=== PATIENT | male | born 1965 | race Caucasian/White ===

== ENCOUNTER 2019-03-26 08:07 | Inpatient (IN) | payer OTHER, SELFPAY ==
[2019-03-26] VITALS (11 sets, daily range): BP systolic 148–174; BP diastolic 88–110; PULSE 63–88; RESP 14–18; TEMP 36.9–37.3; O2SAT 93–97; BMI 27.3; BMI 28.0
--- NOTE | 2019-03-26 08:08 | ED.ANIMALBIT ---
HPI - Animal Bite General Stated Complaint: right side couldn't move this morning Time Seen by Provider: 03/26/19 08:08
--- NOTE | 2019-03-26 08:09 | ED_ITS ---
HPI - Neuro Symptoms/Deficit General Chief Complaint: Neuro Symptoms/Deficit Stated Complaint: right side couldn't move this morning Time Seen by Provider: 03/26/19 08:08 Source: patient and family (son) Mode of arrival: Ambulatory Limitations: no limitations History of Present Illness HPI Narrative: This is a 53-year-old male comes to the Emergency episode with complaint of right-sided paralysis and difficulty with speech on all lasting for about 10 minutes. Patient states that it occurred about 3 times. The 1st episode was in the evening yesterday, there was 1 overnight and then 1 this morning at about 5:00 a.m.. Patient states that during this episode he could not move his right side at all. Patient states that he did not note if he had any vision changes. He has a mild headache. He denies any chest pain or shortness of breath. He felt slightly nauseated earlier. No vomiting. No changes with bowel movements, no loss of bladder control. Patient states his symptoms have totally resolved. States he has a history of hypertension, he does not take medication for it. He is not aware of any other medical problems. He does smoke tobacco, and drinks ?too much alcohol? he denies any illicit. Patient states there is a family history particularly with his mother of strokes, cardiac issues for several family members. He is not aware of anyone having symptoms and age of 60. Related Data Home Medications Medication Instructions Recorded Confirmed lisinopril 20 mg PO DAILY 03/26/19 03/26/19 Allergies Allergy/AdvReac Type Severity Reaction Status Date / Time No Known Drug Allergies Allergy Verified 03/26/19 08:19 Review of Systems Review of Systems ROS Unobtainable: All systems reviewed & are unremarkable except as noted in HPI and below Constitutional Constitutional: Denies chills, Denies fever(s), Denies lethargy and Reports weakness (right arm and leg.) Eyes Eyes: Denies change in vision Cardiovascular Cardiovascular: Denies chest pain, Denies syncope, Denies irregular heart rhythm, Denies lightheadedness, Denies palpitations and Denies dyspnea Respiratory Respiratory: Denies chest congestion, Denies cough and Denies dyspnea Gastrointestinal Gastrointestinal: Denies abdominal pain, Denies change in bowel habits, Denies diarrhea, Reports nausea (resolved.) and Denies vomiting Genitourinary Genitourinary: Denies hematuria, Denies flank pain, Denies urinary frequency, Denies urinary hesitancy, Denies urinary incontinence and Denies urinary urgency Musculoskeletal Musculoskeletal: Reports as per HPI, Reports muscle weakness and Denies numbness Integumentary/Breasts Skin/Breast: Denies erythema and Denies rash Neurologic Neurologic: Reports as per HPI, Reports abnormal speech, Denies syncope, Reports focal weakness, Denies numbness, Denies sensory deficit and Reports weakness (right arm and leg.) Endocrine Endocrine: Denies palpitations Patient History Medical History (Updated 03/26/19 @ 10:16 by Huong Thurman DO) Hypertension (Acute) Family History Mother CVA (cerebral vascular accident) Social History household members: none Smoking Status: Current every day smoker alcohol intake: current tobacco type: cigarettes Alcohol type: beer Substance Use Type: does not use Exam Narrative Exam Narrative: GEN: well nourished, well appearing male, alert and oriented x 3, patient appears to be in no acute distress. HEENT: Atraumatic, pupils are equal round reactive to light, extraocular movements are intact, nares are clear, TMs are clear with no fluid, there is no conjunctival pallor. Throat is clear without any exudates, erythema, tonsillar enlargement or uvular deviation, no facial droop. HEART: Regular rate and rhythm without murmur, clicks, rubs. LUNGS:Lungs clear to auscultation, no wheezes, rales, crackles, chest moves symmetrically ABD:bowel sounds normal, soft, non-tender, no guarding, rebound, rigidity, no masses noted, no hepatosplenomegaly MSCL: Non-tender, no muscle atrophy, muscles strength 5/5 upper and lower extremities, full range of motion, normal gait NEURO:CN 2-12 intact, sensation normal, reflexes 2/4 upper and lower extremities. finger nose finger test normal, heel daniel test normal, no dysarthria. SKIN: no rashes noted. Initial Vital Signs Initial Vital Signs: Vital Signs Temperature 98.7 F 03/26/19 08:12 Pulse Rate 81 03/26/19 08:12 Respiratory Rate 18 03/26/19 08:12 Blood Pressure 171/103 H 03/26/19 08:12 Pulse Oximetry 96 03/26/19 08:12 Scores NIH Stroke Scale Level of Conciousness: Alert, keenly responsive Ask month/age: Answers both questions correctly. Open/close eyes, close hand: Performs both tasks correctly Best gaze horizontal: Normal Visual [place]udson: No visual loss Facial palsy: Normal symetrical movement Left arm drift: No drift for full 10 sec Right arm drift: No drift for full 10 sec Left leg drift: No drift for full 10 sec Right leg drift: No drift for full 10 sec Limb ataxia: Absent Sensory on face/arms/legs: Normal, no sensory loss Best language: No aphasia, normal Dysarthria: Normal Extinction or inattention: No abnormality Total NIH Stroke scale score: 0 Course Orders Ordered: ED Orders 03/26/19 08:54 Complete Blood Count AUTO DIFF Stat Comprehensive Metabolic Panel Stat Ethanol (ETOH) Stat Partial Thromboplastin Time Stat Prothrombin Time INR Stat Troponin I Stat 03/26/19 09:40 CT angio head and neck Stat 03/26/19 10:30 Urine Drug Screen, Rapid Stat Acetaminophen (Tylenol) 650 mg PO Q6HR PRN PRN Reason: As Needed for Fever/Mild Pain Atorvastatin Calcium (Lipitor) 40 mg PO BEDTIME [facility] Clopidogrel Bisulfate (Plavix) 75 mg PO DAILY [facility] Enoxaparin Sodium (Lovenox) 40 mg SUBCUT DAILY [facility] Lisinopril (Zestril) 20 mg PO DAILY [facility] Last Admin: 03/26/19 12:08 Dose: 20 mg Documented by: NAMRATA Discontinued Medications Aspirin (Aspirin Chew) 324 mg PO NOW ONE Stop: 03/26/19 10:12 Last Admin: 03/26/19 10:26 Dose: 324 mg Documented by: ELBA Clopidogrel Bisulfate (Plavix) 300 mg PO NOW ONE Stop: 03/26/19 11:26 Last Admin: 03/26/19 12:08 Dose: 300 mg Documented by: NAMRATA Sodium Chloride (Normal Saline 0.9%) 1,000 mls @ 150 mls/hr IV CONT [facility] Last Admin: 03/26/19 09:18 Dose: 150 mls/hr Documented by: ELBA Influenza Virus Vaccine (Flu Vaccine) 0.5 ml IM .ONCE ONE Stop: 03/26/19 11:44 Nicotine (Nicoderm) 21 mg TOP NOW ONE Stop: 03/26/19 10:36 Last Admin: 03/26/19 12:08 Dose: 21 mg Documented by: ACHESS Vital Signs Vital signs: Vital Signs - 8 hr 03/26/19 10:02 Pulse Rate 71 Respiratory Rate 14 Blood Pressure [Right Arm] 168/106 H Pulse Oximetry 97 MDM - Neuro Symptoms/Deficit Lab Data Attestation: I reviewed the patient's lab results. Result diagrams: 03/26/19 08:54 03/26/19 08:54 Labs: Lab Results 03/26/19 03/26/19 03/26/19 Range/Units 08:54 08:54 08:54 WBC 8.6 (4.5-11.0) X10^3/uL RBC 5.13 (4.5-5.9) X10^6/uL Hgb 16.3 (13.5-17.5) g/dL Hct 46.7 (41-53) % MCV 91.0 (80-100) fL MCH 31.8 (26-34) PG MCHC 34.9 (30-36) % RDW 13.2 (11.6-14.8) % Plt Count 289 (150-400) X10^3/uL Neut % (Auto) 65.5 (50-75) % Lymph % (Auto) 22.5 L (25-40) % [place] % (Auto) 10.2 (3-14) % Eos % (Auto) 1.2 L (2-4) % Baso % (Auto) 0.6 (0-2) % Neut # (Auto) 5600 (1525-6300) /uL Lymph # (Auto) 1900 (5156-7441) /uL [place] # (Auto) 900 (0-900) /uL Eos # (Auto) 100 (0-450) /uL Baso # (Auto) 100 (0-100) /uL PT 10.5 (10.1-12.7) SECONDS INR 0.9 (0.9-1.3) APTT 34 (26.4-36.2) SECONDS Sodium 136 L (137-145) mmol/L Potassium 4.4 (3.4-5.1) mmol/L Chloride 104 (98-107) mmol/L Carbon Dioxide 20 L (22-32) mmol/L BUN 10 (9-20) mg/dL Creatinine 0.70 (0.66-1.25) mg/dL Estimated GFR > 60.0 (>60) mL/min BUN/Creatinine Ratio 14.3 (6-22) Glucose 108 H (70-100) mg/dL Calcium 8.9 (8.4-10.2) mg/dL Total Bilirubin 0.4 (0.2-1.3) mg/dL AST 32 (17-59) IU/L ALT 27 (<50) IU/L Alkaline Phosphatase 48 (38-126) U/L Troponin I < 0.012 (0.01-0.034) ng/mL Total Protein 7.6 (6.3-8.2) g/dL Albumin 4.5 (3.5-5.0) g/dL Globulin 3.1 (1.7-4.1) g/dL Albumin/Globulin Ratio 1.5 (1.0-2.8) Ethyl Alcohol 28 H ( - 10) mg/dL Point of Care Testing Glucose POC [address] scan - head: Radiologist's impression: [address] [address] [address] Scan Report Signed Patient: Edilson Castelan Jr LMR#: [id number] : 1965Acct:[id number] Age/Sex: 53 / MDate of Service: 03/26/19 Loc: ED Accession Number: [id number] Procedure: CT head/brain wo con Ordering Provider: Huong Thurman D.O. PROCEDURE: CT HEAD/BRAIN WO CON INDICATIONS: TIa symptoms, right side paralyzed, speech issues TECHNIQUE: Noncontrast 4.5 mm thick angled axial sections acquired from the foramen magnum to the vertex, with coronal and sagittal reformats. For radiation dose reduction, the following was used: automated exposure control, adjustment of mA and/or kV according to patient size. COMPARISON: None. FINDINGS: Image quality: Excellent. CSF spaces: Basal cisterns are patent. No extra-axial fluid collections. The ventricles are symmetric in size and shape. Brain: No intracranial bleeds or masses. There is cerebral volume loss for age, with resultant ventricular and sulcal prominence. There are periventricular and deep white matter chronic small vessel ischemic changes. A hypodensity noted in the right putamen which could represent prominent Versus chronic lacunar infarct. There is intracranial internal carotid artery atherosclerosis. Skull and face: Calvarium and visualized facial bones appear intact, without suspicious lesions. Sinuses: Mucosal thickening and air-fluid levels noted the visualized maxillary sinuses. Air-fluid level noted in the sphenoid sinus. The mastoids are clear. IMPRESSION: 1. No acute intracranial disease process. 2. No intracranial hemorrhage. 3. Acute superimposed upon chronic bilateral maxillary sinusitis and acute sphenoid sinusitis. Dictated by: Yumiko Marti MD, PhD on 03/26/2019 at 8:37 Approved by: Yumiko Marti MD, PhD on 03/26/2019 at 8:40 Head/Neck CTA: Radiologist's impression: [place] [address] CT Scan Report Signed Patient: Edilson Castelan Jr LMR#: [id number] : 1965Acct:[id number] Age/Sex: 53 / MDate of Service: 03/26/19 Loc: ED Accession Number: [id number] Procedure: CT angio head and neck Ordering Provider: Huong Thurman D.O. PROCEDURE: CT ANGIO HEAD AND NECK INDICATIONS: TIA symptoms, right side paralyzed, speech issues TECHNIQUE: Pre-contrast 4.5 mm thick sections acquired from the foramen magnum to the vertex. After the administration of intravenous contrast, 1 mm thick sections acquired from the aortic arch through the [place] of [place]. Post-contrast 4.5 mm thick sections then re- acquired from the foramen magnum to the vertex. 3-dimensional fveydok-iqyjrudkp-xfclphfunu (MIP) and/or volume rendering reformats were acquired of the central intracranial vasculature and neck separately. COMPARISON: [facility], CT, CT HEAD/BRAIN WO CON, 03/26/2019, 8:22. FINDINGS: Image quality: Excellent. BRAIN: CSF spaces: Ventricles are normal in size and shape. Basal cisterns are patent. No extra-axial fluid collections. Brain: No midline shift. No intracranial bleeds or masses. Ramirez-white matter interface appears intact. Age related volume loss and mild small vessel ischemic change. Dilated perivascular space on the right in the putamen. No evidence acute stroke. Skull and face: Calvarium and facial bones appear intact, without suspicious lesions. Orbits appear normal. Sinuses: Left maxillary sinus air-fluid level. Right maxillary sinus mucosal thickening and reduced retention cyst. HEAD CT ANGIOGRAPHY: Anterior circulation: Intracranial internal carotid arteries are normal in size and flow. The flow within the paired anterior cerebral arteries is normal and symmetric. The flow within the middle cerebral arteries is normal and symmetric. No aneurysms are seen. Posterior circulation: Visualized portions of the vertebral arteries demonstrate normal caliber, and join to form a normal appearing basilar artery. Flow within the posterior cerebral arteries is normal and symmetric. No aneurysms are seen. NECK CT ANGIOGRAPHY: Carotid system: The great vessels demonstrate a conventional anatomy as they arise from the aortic arch. The origins of the common carotid arteries appear patent. The common carotid arteries demonstrate normal caliber and courses. The bifurcation regions are both widely patent. The internal carotid arteries demonstrate mild atheros clerotic plaque with minimal stenosis. No flow limiting stenosis. Posterior circulation: The origins of the vertebral arteries both appear widely patent. The more superior extracranial portions of both vertebral arteries also demonstrate normal courses and calibers. They join to form a normal appearing basilar artery. Soft tissues: Visualized neck soft tissues demonstrate no suspicious abnormalities. Shotty bilateral cervical adenopathy. Bones: No suspicious bony lesions. Visualized cervical spine appears normally aligned. IMPRESSION: 1. Age related volume loss and mild small vessel ischemic change. 2. No evidence acute stroke, hemorrhage, or mass. 3. Unremarkable CTA head 4. Mild bilateral internal carotid atherosclerotic plaque. No flow limiting stenosis. 5. Acute on chronic sinus disease. Comment: Findings were discussed with Dr. Thurman at the time of study dictation on 03/26/19 at 0958 hrs. Any quantitative measurements of stenosis were performed using NASCET criteria. Dictated by: Edenilson Coyle M.D. on 03/26/2019 at 9:50 Approved by: Edenilson Coyle M.D. on 03/26/2019 at 10:00 ECG Data Attestation: I personally reviewed and interpreted this ECG as follows: Prior ECG tracings: not available for review Interpretation: sinus rhythm, rate of 79 ND 178 QRS of 90 during QTC of 415. Likely left ventricular hypertrophy. No prior for comparison. MDM Narrative Medical decision making narrative: Patient's initial glucose was 100. Patient describes TIA like symptoms x 3 in the last 12 hours. With patient's repeated episodes his symptoms are highly concerning for a acute stroke developing. Initial Head CT is negative. CTA shows mild bilateral ICA atherosclerosis. Some left shows sodium 136 CO2 of 20 with a glucose of 108. Alcohol is 28. UDS is ordered but has not been collected. ASA 324 mg given in ED. Spoke with Dr. Schroeder who accepts for observation for TIA. Discharge Plan Departure Patient Disposition: Admitted as Observation Clinical Impression: Transient cerebral ischemia, Hypertension Discharge Date/Time: 03/26/19 10:53 Instructions: DI for Transient Ischemic Attack, How to Prevent Falls Admit Date/Time: 03/26/19 10:15 Admit Provider: Maksim Schroeder
--- NOTE | 2019-03-26 08:25 | DI.CT.S_ITS ---
PROCEDURE: CT HEAD/BRAIN WO CON INDICATIONS: TIa symptoms, right side paralyzed, speech issues TECHNIQUE: Noncontrast 4.5 mm thick angled axial sections acquired from the foramen magnum to the vertex, with coronal and sagittal reformats. For radiation dose reduction, the following was used: automated exposure control, adjustment of mA and/or kV according to patient size. COMPARISON: None. FINDINGS: Image quality: Excellent. CSF spaces: Basal cisterns are patent. No extra-axial fluid collections. The ventricles are symmetric in size and shape. Brain: No intracranial bleeds or masses. There is cerebral volume loss for age, with resultant ventricular and sulcal prominence. There are periventricular and deep white matter chronic small vessel ischemic changes. A hypodensity noted in the right putamen which could represent prominent Versus chronic lacunar infarct. There is intracranial internal carotid artery atherosclerosis. Skull and face: Calvarium and visualized facial bones appear intact, without suspicious lesions. Sinuses: Mucosal thickening and air-fluid levels noted the visualized maxillary sinuses. Air-fluid level noted in the sphenoid sinus. The mastoids are clear. IMPRESSION: 1. No acute intracranial disease process. 2. No intracranial hemorrhage. 3. Acute superimposed upon chronic bilateral maxillary sinusitis and acute sphenoid sinusitis. Dictated by: Yumiko Marti MD, PhD on 03/26/2019 at 8:37 Approved by: Yumiko Marti MD, PhD on 03/26/2019 at 8:40
--- NOTE | 2019-03-26 08:25 | PC.NURSE ---
pt reports, watching tv last night, went to bed at 9pm, woke up at 10pm , trying to go to the bathroom, unable to move right arm and legs, lasting 10 minutes, back to bed, woke up at 3am with same sxs, and again at 5am, +speech slurred,right face numbness,right arm and leg unable to move. denies injuries,trauma. hx of hypertension, pack of cigarette smoker, not taking meds due to I'm lazy
[2019-03-26 09:05] LABS: Add Manual Diff / Slide Review NO; Basophils Absolute Auto 100 /uL (0-100); Basophils Percent Auto 0.6 % (0-2); Eosinophils Absolute Auto 100 /uL (0-450); Eosinophils Percent Auto 1.2 % (2-4); Hematocrit 46.7 % (41-53); Hemoglobin 16.3 g/dL (13.5-17.5); Lymphocytes Absolute Auto 1900 /uL (1100-4500); Lymphocytes Percent Auto 22.5 % (25-40); Mean Corpuscular HGB Conc 34.9 % (30-36); Mean Corpuscular Hemoglobin 31.8 PG (26-34); Monocytes Absolute Auto 900 /uL (0-900); Monocytes Percent Auto 10.2 % (3-14); Neutrophils Absolute Auto 5600 /uL (1500-7000); Neutrophils Percent Auto 65.5 % (50-75); Platelet Count 289 X10^3/uL (150-400); Red Blood Cell Count 5.13 X10^6/uL (4.5-5.9); Red Cell Distribution Width 13.2 % (11.6-14.8); White Blood Cell Count 8.6 X10^3/uL (4.5-11.0)
[2019-03-26 09:10] LABS: INR 0.9 (0.9-1.3); Prothrombin Time 10.5 SECONDS (10.1-12.7)
[2019-03-26 09:13] LABS: PTT Partial Thromboplastin Tim 34 SECONDS (26.4-36.2)
[2019-03-26 09:14] LABS: Alanine Aminotransferase 27 IU/L (<50); Albumin 4.5 g/dL (3.5-5.0); Albumin Globulin Ratio 1.5 (1.0-2.8); Alkaline Phosphatase 48 U/L (38-126); Aspartate Aminotransferase 32 IU/L (17-59); BUN Creatinine Ratio 14.3 (6-22); Bilirubin Total 0.4 mg/dL (0.2-1.3); Blood Urea Nitrogen 10 mg/dL (9-20); Calcium 8.9 mg/dL (8.4-10.2); Carbon Dioxide 20 mmol/L (22-32); Chloride 104 mmol/L (98-107); Estimated Glomerular Filt Rate > 60.0 mL/min (>60); Ethanol (ETOH) 28 mg/dL; Globulin 3.1 g/dL (1.7-4.1); Glucose 108 mg/dL (70-100); HEMOLYSIS < 15 (0-50); Potassium 4.4 mmol/L (3.4-5.1); Sodium 136 mmol/L (137-145); Total Protein 7.6 g/dL (6.3-8.2)
[2019-03-26] MEDS: SODIUM CHLORIDE 0.9% 1,000 ML 150 ML IV (09:18)
[2019-03-26 09:26] LABS: Troponin I < 0.012 ng/mL (0.01-0.034)
--- NOTE | 2019-03-26 09:40 | DI.CT.S_ITS ---
PROCEDURE: CT ANGIO HEAD AND NECK INDICATIONS: TIA symptoms, right side paralyzed, speech issues TECHNIQUE: Pre-contrast 4.5 mm thick sections acquired from the foramen magnum to the vertex. After the administration of intravenous contrast, 1 mm thick sections acquired from the aortic arch through the [place] of [place]. Post-contrast 4.5 mm thick sections then re-acquired from the foramen magnum to the vertex. 3-dimensional ipspnht-tgtrtfacb-fvucrrepet (MIP) and/or volume rendering reformats were acquired of the central intracranial vasculature and neck separately. COMPARISON: [facility], CT, CT HEAD/BRAIN WO CON, 03/26/2019, 8:22. FINDINGS: Image quality: Excellent. BRAIN: CSF spaces: Ventricles are normal in size and shape. Basal cisterns are patent. No extra-axial fluid collections. Brain: No midline shift. No intracranial bleeds or masses. Ramirez-white matter interface appears intact. Age related volume loss and mild small vessel ischemic change. Dilated perivascular space on the right in the putamen. No evidence acute stroke. Skull and face: Calvarium and facial bones appear intact, without suspicious lesions. Orbits appear normal. Sinuses: Left maxillary sinus air-fluid level. Right maxillary sinus mucosal thickening and reduced retention cyst. HEAD CT ANGIOGRAPHY: Anterior circulation: Intracranial internal carotid arteries are normal in size and flow. The flow within the paired anterior cerebral arteries is normal and symmetric. The flow within the middle cerebral arteries is normal and symmetric. No aneurysms are seen. Posterior circulation: Visualized portions of the vertebral arteries demonstrate normal caliber, and join to form a normal appearing basilar artery. Flow within the posterior cerebral arteries is normal and symmetric. No aneurysms are seen. NECK CT ANGIOGRAPHY: Carotid system: The great vessels demonstrate a conventional anatomy as they arise from the aortic arch. The origins of the common carotid arteries appear patent. The common carotid arteries demonstrate normal caliber and courses. The bifurcation regions are both widely patent. The internal carotid arteries demonstrate mild atherosclerotic plaque with minimal stenosis. No flow limiting stenosis. Posterior circulation: The origins of the vertebral arteries both appear widely patent. The more superior extracranial portions of both vertebral arteries also demonstrate normal courses and calibers. They join to form a normal appearing basilar artery. Soft tissues: Visualized neck soft tissues demonstrate no suspicious abnormalities. Shotty bilateral cervical adenopathy. Bones: No suspicious bony lesions. Visualized cervical spine appears normally aligned. IMPRESSION: 1. Age related volume loss and mild small vessel ischemic change. 2. No evidence acute stroke, hemorrhage, or mass. 3. Unremarkable CTA head 4. Mild bilateral internal carotid atherosclerotic plaque. No flow limiting stenosis. 5. Acute on chronic sinus disease. Comment: Findings were discussed with Dr. Thurman at the time of study dictation on 03/26/19 at 0958 hrs. Any quantitative measurements of stenosis were performed using NASCET criteria. Dictated by: Edenilson Coyle M.D. on 03/26/2019 at 9:50 Approved by: Edenilson Coyle M.D. on 03/26/2019 at 10:00
[2019-03-26] MEDS: ASPIRIN 81 MG CHEW TAB 324 MG PO (10:26)
[2019-03-26 10:46] LABS: Ur Creatinine Normal (Normal); Ur Specific Gravity Normal (Normal); Urine pH Normal (Normal)
[2019-03-26 10:47] LABS: UR Morphine/Opiate cutoff 300 Negative (Negative); Urine Amphetamines Negative (Negative); Urine Barbiturates Negative (Negative); Urine Benzodiazepines Negative (Negative); Urine Cocaine Negative (Negative); Urine MDMA Negative (Negative); Urine Methadone Negative (Negative); Urine Methamphetamines Negative (Negative); Urine Oxycodone Negative (Negative); Urine Phencyclidine Negative (Negative); Urine Tetrahydrocannabinol Negative (Negative); Urine Tricyclic Antidepressant Negative (Negative)
--- NOTE | 2019-03-26 11:19 | DI.MRI.S_ITS ---
PROCEDURE: MR STROKE Pre- and post-contrast brain MRI, non-contrast brain MR angiogram, pre- and postcontrast neck MR angiogram INDICATIONS: TIA, R weakness and slurred speech now resolved TECHNIQUE: Brain: Noncontrast axial T1 spin echo, axial T2 fast spin echo, sagittal and axial FLAIR, coronal T2 fast spin echo, axial gradient echo, axial diffusion and ADC through the brain. After the administration of contrast, axial 3D VIBE of the cranial vasculature and brain. Brain MRA: Non-contrast 3-D time of flight MR angiogram, with multiple rmvfmsv-qgyznxurr-uvglhcnfrw (MIP) reformats performed. Neck MRA: Axial and sagittal TruFISP through the neck. Coronal dynamic MR angiogram during administration of contrast in the arterial and venous phases, with 3-dimenstional liwqbid-bxkjzhpek-nvblbbrzzq (MIP) reformats constructed from subtraction images. COMPARISON: [facility], CT, CT ANGIO HEAD AND NECK, 03/26/2019, 9:30. FINDINGS: Image quality: Excellent. BRAIN: CSF spaces: Ventricles are normal in size and shape. Basal cisterns are patent. No extra-axial fluid collections. Brain: No intracranial bleeds or mass effects. There is mild, diffuse cerebral volume loss. There are mild periventricular and subcortical white matter chronic microvascular ischemic changes. Prominent perivascular space noted in the right putamen. Ramirez-white matter interface is normal. Small acute lacunar infarct noted in the posterior left caudate body/bailey radiata. Brainstem appears normal. Normal intravascular flow voids are present. No abnormal intracranial enhancement. Skull and face: Calvarial marrow signal is normal. Orbits appear normal. Sinuses: Mucosal thickening noted in the maxillary sinuses and in the left frontal sinus. Large mucous retention cyst versus polyp noted in the right maxillary sinus. Air fluid level noted in the left maxillary sinus and the sphenoid sinuses. The mastoids are clear. BRAIN MR ANGIOGRAM: Anterior circulation: Intracranial internal carotid arteries are normal in size and enhancement. The flow within the paired anterior cerebral arteries is normal and symmetric. The flow within the middle cerebral arteries is normal and symmetric. The anterior communicating artery is seen. No stenoses, occlusions, or aneurysms. Posterior circulation: The visualized portions of the vertebral arteries demonstrate normal caliber, and join to form a normal appearing basilar artery. The flow within the posterior cerebral arteries is normal and symmetric. No stenoses, occlusions, or aneurysms. NECK MR ANGIOGRAM: Carotids: Great vessels demonstrate a conventional anatomy as they arise from the aortic arch. The origins of the common carotid arteries appear patent. The calibers and courses of both common carotid arteries are normal. The bifurcation regions appear normal bilaterally. The internal carotid arteries demonstrate normal course and caliber. Posterior circulation: The origins of the vertebral arteries appear patent. More superior portions of both vertebral arteries demonstrate normal course and caliber, and join to form a normal appearing basilar artery. Miscellaneous: Subclavian arteries appear patent. Pre-contrast images through the neck show no soft tissue abnormalities. IMPRESSION: BRAIN MRI: 1. Small, acute lacunar infarct involving the posterior left caudate body/left bailey radiata. 2. No acute or chronic intracranial hemorrhage. 3. Mild, diffuse cerebral white loss. 4. Mild periventricular and subcortical white matter chronic microvascular ischemic changes. 6. Sinusitis stable compared to prior CT scan of the head obtained on a slice 10/2018 BRAIN MR ANGIOGRAM: Negative examination. NECK MR ANGIOGRAM: Negative examination. Dictated by: Yumiko Marti MD, PhD on 03/26/2019 at 16:04 Approved by: Yumiko Marti MD, PhD on 03/26/2019 at 16:15
--- NOTE | 2019-03-26 11:24 | P.HP_ITS ---
History of Present Illness History of Present Illness Date Patient Seen: 03/26/19 Time Patient Seen: 11:26 Chief complaint: right side couldn't move this morning Narrative: Edilson Castelan Jr is a 53 year old male with PMH of HTN (has not been taking his medications, and has not seen his PMD in a while) who presented to the ED after waking up with right-sided paralysis and slurred speech. Patient states last night around 10:00 p.m. he had an episode lasting 5-10 minutes of right-sided paralysis and slurred speech. He further endorses some numbness on the right side that again resolved. He was aware of his surroundings and was in bed and did not fall. This resolved after approximately 5-10 minutes. The patient then went to bed and woke up around 3:00 a.m. with similar symptoms which again resolved. He then woke up early this morning with another episode that again lasted approximately 5-10 minutes. He then presented to the emergency room for further evaluation. He denies any recent fevers, chills, chest pain, palpitations, shortness of breath, dyspnea on exertion, orthopnea, lower extremity edema, nausea, vomiting. He states he drinks a 6 pack at night, every night. He smokes about a pack-a-day and has for many years. He denies illicit substances or marijuana use. In the ED, the patient's vitals were notable for hypertension, but otherwise unremarkable. His stroke scale was 0 in the emergency room. His initial lab evaluation was unremarkable. His head CT was unremarkable, as was a CTA head and neck which did not show significant carotid stenosis. He will be admitted under observation status for TIA. Patient History Medical History (Updated 03/26/19 @ 10:16 by Huong Thurman DO) Hypertension (Acute) Family & Social History Family History Mother CVA (cerebral vascular accident) Safety & Behavioral: Feels Safe in Current Yes Environment Been Physically Hurt or No Threatened By a Person Tobacco & Substance use: Smoking Status Current every day smoker alcohol intake frequency 3 or more drinks per day Substance Use Type does not use Meds Home Medications and Allergies Home Medications Medication Instructions Recorded Confirmed Type lisinopril 20 mg PO DAILY 03/26/19 03/26/19 History Allergies Allergy/AdvReac Type Severity Reaction Status Date / Time No Known Drug Allergies Allergy Verified 03/26/19 08:19 Review of Systems Review of Systems Narrative: All other systems reviewed with the patient and are negative unless otherwise stated. Exam Vital Signs (past 8 hours): - 03/26/19 08:12 03/26/19 08:15 03/26/19 08:36 Temperature 98.7 F Pulse Rate 81 88 79 Respiratory Rate 18 15 16 Blood Pressure 171/103 H Blood Pressure [Right Arm] 171/103 H 173/101 H Pulse Oximetry 96 03/26/19 09:02 03/26/19 09:21 03/26/19 09:30 Temperature Pulse Rate 74 76 77 Respiratory Rate 16 17 18 Blood Pressure Blood Pressure [Right Arm] 174/100 H 174/100 H 169/98 H Pulse Oximetry 94 96 03/26/19 10:02 03/26/19 11:16 Temperature Pulse Rate 71 Respiratory Rate 14 Blood Pressure Blood Pressure [Right Arm] 168/106 H Pulse Oximetry 97 93 Oxygen Delivery Method Room Air Oxygen Flow Rate 0 Narrative Exam Narrative: GENERAL APPEARANCE: Well developed, well nourished, in no acute distress. SKIN: Inspection of the skin reveals no rashes, ulcerations or petechiae. HEENT: The sclerae were anicteric and conjunctivae were pink and moist. Extraocular movements were intact and pupils were equal, round with normal ac commodation. External inspection of the ears and nose showed no scars, lesions, or masses. Lips, teeth, and gums showed normal mucosa. The oral mucosa, hard and soft palate, tongue and posterior pharynx were unremarkable. NECK: Supple and symmetric. There was no thyroid enlargement, and no tenderness, or masses were felt. CHEST: Normal AP diameter and normal contour without any kyphoscoliosis. LUNGS: Auscultation of the lungs revealed no wheezes, rhonchi, or rales. CARDIOVASCULAR: There was a regular rate and rhythm without any murmurs, gallops, rubs. Peripheral pulses were 2+ and symmetric. ABDOMEN: Soft and nontender with normal bowel sounds. No ascites was noted. MUSCULOSKELETAL: There was no tenderness or effusions noted. Muscle strength and tone were normal. EXTREMITIES: No cyanosis, clubbing or edema. NEUROLOGIC: Alert and oriented x 3. Normal affect. Gait was normal. Strength is +5/5 in the Upper Extremities and Lower Extremities Bilaterally. Sensation to touch was normal bilaterally. Objective ECG Impression: Normal sinus rhythm, LVH. No ST segment elevations or T-wave inver sions to suggest ischemia. Imaging CT scan - head: Radiologist's impression: 1. No acute intracranial disease process. 2. No intracranial hemorrhage. 3. Acute superimposed upon chronic bilateral maxillary sinusitis and acute sphenoid sinusitis. Head/Neck CTA: Radiologist's impression: 1. Age related volume loss and mild small vessel ischemic change. 2. No evidence acute stroke, hemorrhage, or mass. 3. Unremarkable CTA head 4. Mild bilateral internal carotid atherosclerotic plaque. No flow limiting stenosis. 5. Acute on chronic sinus disease. Labs Result Diagrams: 03/26/19 08:54 03/26/19 08:54 Labs: Laboratory Results - last 24 hr 03/26/19 03/26/19 03/26/19 08:54 08:54 08:54 WBC 8.6 RBC 5.13 Hgb 16.3 Hct 46.7 MCV 91.0 MCH 31.8 MCHC 34.9 RDW 13.2 Plt Count 289 Neut % (Auto) 65.5 Lymph % (Auto) 22.5 L [place] % (Auto) 10.2 Eos % (Auto) 1.2 L Baso % (Auto) 0.6 Neut # (Auto) 5600 Lymph # (Auto) 1900 [place] # (Auto) 900 Eos # (Auto) 100 Baso # (Auto) 100 PT 10.5 INR 0.9 APTT 34 Sodium 136 L Potassium 4.4 Chloride 104 Carbon Dioxide 20 L BUN 10 Creatinine 0.70 Estimated GFR > 60.0 BUN/Creatinine Ratio 14.3 Glucose 108 H Calcium 8.9 Total Bilirubin 0.4 AST 32 ALT 27 Alkaline Phosphatase 48 Troponin I < 0.012 Total Protein 7.6 Albumin 4.5 Globulin 3.1 Albumin/Globulin Ratio 1.5 U Morph 300 ng/mL cutoff Ur Oxycodone Screen Urine Methadone Screen Ur Barbiturates Screen U Tricyclic Antidepress Ur Phencyclidine Scrn Ur Amphetamines Screen U Methamphetamines Scrn Ur MDMA Scrn (Ecstasy) U Benzodiazepines Scrn Urine Cocaine Screen U Marijuana (THC) Screen Ethyl Alcohol 28 H 03/26/19 10:30 WBC RBC Hgb Hct MCV MCH MCHC RDW Plt Count Neut % (Auto) Lymph % (Auto) Fillmore % (Auto) Eos % (Auto) Baso % (Auto) Neut # (Auto) Lymph # (Auto) Fillmore # (Auto) Eos # (Auto) Baso # (Auto) PT INR APTT Sodium Potassium Chloride Carbon Dioxide BUN Creatinine Estimated GFR BUN/Creatinine Ratio Glucose Calcium Total Bilirubin AST ALT Alkaline Phosphatase Troponin I Total Protein Albumin Globulin Albumin/Globulin Ratio U Morph 300 ng/mL cutoff Negative Ur Oxycodone Screen Negative Urine Methadone Screen Negative Ur Barbiturates Screen Negative U Tricyclic Antidepress Negative Ur Phencyclidine Scrn Negative Ur Amphetamines Screen Negative U Methamphetamines Scrn Negative Ur MDMA Scrn (Ecstasy) Negative U Benzodiazepines Scrn Negative Urine Cocaine Screen Negative U Marijuana (THC) Screen Negative Ethyl Alcohol Assessment & Plan Assessment and plan (1) Hypertension: Current visit: Yes Status: Acute Assessment & Plan narrative: Mr. Flip Junior is a 53-year-old male with past medical history of hypertension who was admitted under observation status for TIA. His ABCD2 score for TIA is 4, he was given high-dose aspirin in the ED, and I will give him a Plavix loading dose of 300 mg now and he will continue 75 mg of Plavix for 90 days. He has also been started on daily aspirin. 1. TIA -patient was symptoms of unilateral right-sided paralysis and slurred speech, with reported numbness as well. CT head and CTA head and neck done in the emergency room were unremarkable. He did have 3 episodes of symptoms in total lasting around half an hour. His ABCD2 score is 4 and he will start on aspirin and Plavix. Given no history of palpitations or AFib, this TIA is not likely embolic, but it remains a possibility. EKG does not appear ischemic and initial troponin is negative, no need for further troponins as patient is without chest pain. -patient was given high-dose aspirin, loaded with Plavix 300 mg upon arrival to the floor. Continue low-dose aspirin and 75 mg of Plavix daily. Plavix should be given for a total of 90 days only. -will obtain MRI stroke -based on initial evaluation patient does not require PT, OT, or speech evaluation at this time -obtain TSH, A1c, and fasting lipid panel -continue telemetry -obtain TTE -resume patient's prior home dose of lisinopril 2. Essential hypertension, chronic, present on admission, active -patient has not been taking his prescribed lisinopril. Will resume this medication today. May need to be titrated up depending on his clinical response. Code: Full. Patient designates son or (still but ) as his surrogate decision maker. DVT: Lovenox daily Dispo: Admitted under observation status as his stay is not likely to exceed 2 midnights. Scores ABCD2 Age >= 60 years: no Initial BP. Either SBP >= 140 or DBP >= 90.: yes Clinical features of the TIA: unilateral weakness Duration of symptoms: 10-59 minutes History of diabetes: no ABCD2 Score: 4 NIHSS Level of Conciousness: Alert, keenly responsive Ask month/age: Answers both questions correctly. Open/close eyes, close hand: Performs both tasks correctly Best gaze horizontal: Normal Visual hudson: No visual loss Facial palsy: Normal symetrical movement Left arm drift: No drift for full 10 sec Right arm drift: No drift for full 10 sec Left leg drift: No drift for full 5 sec Right leg drift: No drift for full 5 sec Limb ataxia: Absent Sensory on face/arms/legs: Normal, no sensory loss Best language: No aphasia, normal Dysarthria: Normal Extinction or inattention: No abnormality Total NIH Stroke scale score: 0
--- NOTE | 2019-03-26 11:56 | PC.NURSE ---
Addendum entered by Jailyn Pichardo R.N. 03/26/19 15:09: pt to MRI via wheelchair at 1508. Addendum entered by Jailyn Pichardo R.N. 03/26/19 12:38: Spoke with Brian in ECHO at 1237, will be completed tomorrow 03/27. Addendum entered by Jailyn Pichardo R.N. 03/26/19 12:11: At 1207, checking in on pt and he had complaint of right hand numbness, right arm and right leg drift when asked to hold extremities outwards from body. Dr. Schroeder aware by this fiction writer at 1212, had been previously aware as he just left pt's room. Original Note: Day SHift- Report rec'd from SARAH Lozoya in ED at 1046. Pt arrived at 1105 to room 216 via wheelchair. Was able to indep transfer to bed without difficulty. Dr. Schroeder in room upon admit. BP elevated at 172/110, pulse 78, Dr. Schroeder aware. NIH score is 0. Pt denies numbness, tingling, weakness, headache, nausea, chest pain, discomfort, pain. site monitor changed, explained to pt rationale. Oriented X4, does state current month is February, date is 2018. Pt oriented to bed controls, call light, and the need to ask for assistance prior to ambulation. Pt's son Stephen in room also. No further voiced concerns at this time. Call light within reach, bed alarm on. Pt aware of plan for MRI at 1500 today and an ordered ECHO.
[2019-03-26] MEDS: NICOTINE 21 MG PATCH TOP (12:08)
[2019-03-26] MEDS: CLOPIDOGREL 75 MG TABLET 300 MG PO (12:08)
[2019-03-26] MEDS: LISINOPRIL 20 MG TABLET PO (12:08)
[2019-03-26] MEDS: INFLUENZA VACCINE 0.5 ML SYRINGE IM (18:33)
[2019-03-26] MEDS: ATORVASTATIN 20 MG TABLET 40 MG PO (20:52)
[2019-03-27] VITALS: BP 122/71; PULSE 69; RESP 18; TEMP 36.6; O2SAT 96
[2019-03-27 06:18] VITALS: BP 135/82; PULSE 65; RESP 16; TEMP 36.2; O2SAT 97
[2019-03-27 06:18] LABS: Add Manual Diff / Slide Review NO; Basophils Absolute Auto 100 /uL (0-100); Basophils Percent Auto 0.7 % (0-2); Eosinophils Absolute Auto 100 /uL (0-450); Hematocrit 43.4 % (41-53); Hemoglobin 15.1 g/dL (13.5-17.5); Lymphocytes Absolute Auto 1600 /uL (1100-4500); Lymphocytes Percent Auto 16.3 % (25-40); Mean Corpuscular HGB Conc 34.9 % (30-36); Mean Corpuscular Hemoglobin 31.6 PG (26-34); Mean Corpuscular Volume 90.7 fL (80-100); Monocytes Absolute Auto 900 /uL (0-900); Monocytes Percent Auto 9.2 % (3-14); Neutrophils Absolute Auto 7200 /uL (1500-7000); Neutrophils Percent Auto 72.8 % (50-75); Platelet Count 288 X10^3/uL (150-400); Red Blood Cell Count 4.79 X10^6/uL (4.5-5.9); Red Cell Distribution Width 12.9 % (11.6-14.8); White Blood Cell Count 9.9 X10^3/uL (4.5-11.0)
[2019-03-27 06:30] LABS: Hemoglobin A1C% w Est Avg Glu 5.2 % (4.0-6.0)
[2019-03-27 06:33] LABS: BUN Creatinine Ratio 11.1 (6-22); Blood Urea Nitrogen 10 mg/dL (9-20); Calcium 8.9 mg/dL (8.4-10.2); Carbon Dioxide 26 mmol/L (22-32); Chloride 104 mmol/L (98-107); Cholesterol 199 mg/dL (140-199); Estimated Glomerular Filt Rate > 60.0 mL/min (>60); Glucose 104 mg/dL (70-100); HDL Cholesterol 40 mg/dL (40-60); HEMOLYSIS < 15 (0-50); LDL Cholesterol Calculated 130 mg/dL (<100); Magnesium 2.2 mg/dL (1.6-2.3); Potassium 4.4 mmol/L (3.4-5.1); Sodium 137 mmol/L (137-145); Triglycerides 144 mg/dL (35-150)
[2019-03-27 07:02] LABS: TSH w/ Reflex to FT4 1.84 uIU/mL (0.47-4.68)
[2019-03-27] MEDS: CLOPIDOGREL 75 MG TABLET PO (08:03)
[2019-03-27] MEDS: LISINOPRIL 20 MG TABLET PO (08:03)
[2019-03-27] MEDS: ENOXAPARIN 40 MG/0.4 ML SYRINGE SUBCUT (08:03)
[2019-03-27 08:10] VITALS: BP 150/102; PULSE 68; RESP 18; O2SAT 97
[2019-03-27 09:00] VITALS: BP 132/90; PULSE 72; RESP 18; TEMP 36.8; O2SAT 97
--- NOTE | 2019-03-27 09:10 | PT.IIE ---
I dertify that I have reviewed this documentation and is involved with this pt's care. Current Diagnoses Essential (primary) hypertension (03/26/19) Medical History (Last Updated 03/26/19 @ 08:23 by Huong Thurman DO) Hypertension (Acute) Physical Therapy Inpatient Evaluation/Re-Eval M1 PT/OT-IP Prior Functional Status Start: 03/27/19 12:09 Freq: NEEDED Status: Discharge Protocol: Document 03/27/19 09:10 MT (Rec: 03/27/19 12:56 MT [email or web address]) Medical Review Prior Functional Status Medical History Reviewed Yes Diet/Fluid Consistency Regular Communication Pt is able to make needs known Mobility and Gait Pt reported that he was fully independent with all mobilty and gait. He did not use an AD prior to hospitalization. He was able to walk far distances. Activities of Daily Living and IADL's pt reports being independent with all of his ADL's Social History Household Members none Living Arrangements RV Number of Floors (Floors) One Floor Number of Stairs To Enter/Railing? There is one step to get into the RV. With a handle on the left side. Home Environment Standard Height Toilet,Tub/ Shower Employment Status Call Center Manager Employed Additional Social History Comment Pt works on the [employer] M2 PT-IP Current Condition Start: 03/27/19 12:09 Freq: NEEDED Status: Discharge Protocol: Document 03/27/19 09:10 MT (Rec: 03/27/19 12:56 MT [email or web address]) Physical Therapy Current Condition Current Condition Evaluation Date 03/27/19 Treatment Diagnosis reduced gait tolerance and mobiltiy secondary to CVA Onset Date 03/26/19 M3 PT-IP Subjective Start: 03/27/19 12:09 Freq: NEEDED Status: Discharge Protocol: Document 03/27/19 09:10 MT (Rec: 03/27/19 12:56 MT [email or web address]) Subjective Physical Therapy Visit Type Type Initial Evaluation Visit Start Time 09:10 Visit Stop Time 09:36 Total Visit Minutes 26 Number of AIRPORT UTILITY WORKER Visits 0 Physical Therapy Visit Comments Patient Comments Pt was agreeable to participate in physical therapy eval Therapy Pain Assessment Pain When Pain Assessed At Rest Pain Present Pain Present Denied Pain M4 PT-IP Mobility and Gait Start: 03/27/19 12:09 Freq: NEEDED Status: Discharge Protocol: Document 03/27/19 09:10 MT (Rec: 03/27/19 12:56 MT [id number]) PT-Bed Mobility Assessment Supine to Sit Supine to Sit Independent Sit to Supine Sit to Supine Independent Scooting Scooting to Edge of Bed Independent PT-Transfer Assessment Sit to and From Stand Sit to and from Stand Standby Assistance Equipment Transfer Assistive Device None,Gait Belt,Front Wheeled Walker Orthotic/Prosthetic Devices or Brace: No Transfers Transfer Destination Bed,Chair Transfer Technique Stand Step Pivot Transfer Ability Level of Assist Standby Assistance Comments Mobility Comments Pt was able to perform supine to sit bed mobility and scooting to sit EOB independently. Pt performed sit to stand transfer with 2WW SBA. Pt was determined safe with AD and attempted without the walker throughout the session and deemed safe with transfers without an AD and SBA. Gait Assessment Gait Gait Assistance Required: Independent,Standby Assistance Distance (Feet) 300 Able to Maintain Weight Bearing Status Yes During Gait Assistive Devices Assistive Device None,Gait Belt,Front Wheeled Walker Orthotic/Prosthetic Devices or Brace: No Gait Deviations General Gait Pattern Wide Based Gait Comments Gait Comments Pt was able to ambulate 15 ft SBA with 2WW. PT determined pt was safe with AD and attempted ambulation without AD. Pt able to amulate safely without AD. Pt ambulated SBA 300 ft x2 without AD. Pt able to safely progress to independent ambulation and was cleared in his room and nursing was notified. Stair Climbing Assessment Evaluation Level of Assist On Stairs Contact Guard Assistance Devices Stair Climbing Assistive Devices None Technique/Endurance Stair Climbing Direction Ascend and Descend Stair Climbing Technique Step Over Step,Step to Step Number of Steps Climbed 3 Query Text: Stair Climbing Set # Repetitions (reps) 1 Comments Stair Climbing Comments Pt was able to ascend/descend 3 steps with CGA assistance and no use of handrail. PT-Balance Assessment Sitting Balance and Reactions Static Sitting Balance Ability Normal Dynamic Sitting Balance Ability Normal Standing Balance and Reactions Static Standing Balance Ability Normal Dynamic Standing Balance Ability Normal Functional Assessments Functional Tests Tinetti Balance and Gait Assessment /28 Other Functional Tests Performed Tinetti Total Score: 27/28 Balance score: 16/16 Gait Score: 11/12 M5 PT-IP Objective Assessments Start: 03/27/19 12:09 Freq: NEEDED Status: Discharge Protocol: Document 03/27/19 09:10 MT (Rec: 11/07/19 12:56 MT [id number]) Orientation Orientation/Cognition Level of Alertness Alert Orientation Name,Place,Situation Language Function Ability No Deficits Noted Safety Awareness Understands Safety Issues Memory Description No Deficits Noted Gross Range of Motion Lower Extremity ROM Assessment Within Functional Limits Strength Lower Extremity Strength Assessment Within Functional Limits Comments Strength Comments Pt is 5/5 with all LE strength . No deficits note between left and right side Muscle Tone Muscle Tone WNL Yes M6 PT-IP Treatment Start: 03/27/19 12:09 Freq: NEEDED Status: Discharge Protocol: Document 03/27/19 09:10 MT (Rec: 03/27/19 12:56 MT [id number]) Physical Therapy Treatment Education Education Provided Safety M7 PT-IP Assessment and Plan Start: 03/27/19 12:09 Freq: NEEDED Status: Discharge Protocol: Document 03/27/19 09:10 MT (Rec: 03/27/19 12:56 MT [email or web address]) PT Summary Assessment and Plan Potential Rehabilitation Potential Excellent Status of Condition at Evaluation Stable Summary Impairments Balance,Activity Tolerance Assessment Summary Pt reports that he feels completely normal and back to baseline. He shows no strength deficits. Began eval with pt at SBA and using 2WW for ambulation, but progressed to no AD and pt demonstrated no loss of balance. Pt demonstrates enough safety to be cleared for independent gait. Reviewed safety with pt and cleared pt for independent ambulation in room. Discussed with nursing that pt can be independent with his in room ambulation. Due to pt 's safety and independence with gait and his balance score which puts him at a low fall risk, pt does not need physical therapy services and is safe to discharge home. Frequency of Treatment Frequency Of Treatment Discharge Recommendations To Nursing Amount of Assist Needed Independent Discharge Recommendations PT Discharge Recommendations Home
--- NOTE | 2019-03-27 11:00 | DI.ECHO.S_ITS ---
Echocardiogram Report + + :Name: LORRAINE SAENZ JR Study Date: 03/27/2019 Height: 73 in : :[facility] Weight: 207 lb: : Gender: Male BSA: 2.2 m2 : :: 1965 Age: 53 yrs : :Reason For Study: TIA : : Performed By: Brian Corrales : :Referring: MARCO COLMENARES : + + Interpretation Summary The ejection fraction is estimated to be 60-65%. There is no significant valvular heart disease. Procedure: A two-dimensional transthoracic echocardiogram with color flow and Doppler was performed. The study quality was technically adequate. There is no prior echocardiogram noted for this patient. A saline contrast injection was performed to assess for cardiac shunting. The patient was in normal sinus rhythm during the exam. Left Ventricle: The left ventricle is normal in size. There is normal left ventricular wall thickness. The ejection fraction is estimated to be 60-65%. There are no focal wall motion abnormalities. Right Ventricle: The right ventricle is normal in size and function. Atria: The left atrium is mildly dilated. Right atrial size is normal. Injection of contrast documented no interatrial shunt. Mitral Valve: The mitral valve is normal in structure and function. There is no mitral regurgitation. Aortic Valve: The aortic valve is trileaflet. The aortic valve opens well. No aortic regurgitation is present. Tricuspid Valve: The tricuspid valve is normal in structure and function. No tricuspid regurgitation. Pulmonary artery pressures cannot be estimated because of the lack of a measurable TR jet velocity. Pulmonic Valve: The pulmonic valve is not well visualized. There is no pulmonic valvular regurgitation. Great Vessels: The aortic root is normal size. The ascending aorta is mildly enlarged. The pulmonary artery is normal size. The IVC is of normal diameter and collapses greater than 50% with a sniff. This suggests a low right atrial pressure of 3 mm Hg. Pericardium/ Pleura There is no pericardial effusion. There is no pleural effusion. MMode/2D Measurements & Calculations LVIDd: 4.6 cm LVOT diam: 2.3 cm LVIDs: 3.4 cm Ao root diam: 3.6 cm FS: 26.0 % Aortic Jxn: 3.0 cm EPSS: 0.83 cm asc Aorta Diam: 3.5 cm IVSd: 0.90 cm Ao Arch Diam (Prox Trans): 2.5 cm LVPWd: 0.77 cm LV vines. diameter/BSA (cm/m^2): 2.1 LV sys. diameter/BSA (cm/m^2): 1.6 LA dimension: 3.4 cm RA long axis: 4.7 cm LA A2 area: 24.4 cm2 RA area: 16.1 cm2 LA A4 area: 24.9 cm2 RA vol: 46.3 ml LA length (vol): 5.6 cm RA : 21.2 ml/m2 LA vol: 92.6 ml IVC diam: 0.62 cm LA vol index: 42.4 ml/m2 Doppler Measurements & Calculations Ao V2 max: 147.1 cm/sec LVOT Max Mushtaq: 109.1 cm/sec Ao V2 mean: 107.7 cm/sec LV V1 max P.8 mmHg Ao max P.7 mmHg LV V1 VTI: 23.0 cm Ao mean P.0 mmHg ANTHONY(I,D): 3.0 cm2 Ao V2 VTI: 30.5 cm ANTHONY(V,D): 3.0 cm2 sev ratio: 0.75 ANTHONY indexed to BSA (cm^2/m^2): 1.4 MV E max mushtaq: 58.2 cm/sec PA V2 max: 86.2 cm/sec MV A max mushtaq: 80.4 cm/sec PA V2 mean: 66.8 cm/sec MV E/A: 0.72 PA mean P.9 mmHg Med Peak E' Mushtaq: 6.1 cm/sec PA pr(Accel): 21.6 mmHg E/E' med: 9.6 PA Accel Time: 0.12 sec Lat Peak E' Mushtaq: 10.1 cm/sec E/E' lat: 5.8 E/e' average: 7.7 MV dec time: 0.20 sec SV(LVOT): 91.6 ml _ Reading Physician:03:47 PM
[2019-03-27 12:00] VITALS: BP 142/109; PULSE 71; RESP 18; TEMP 36.9; O2SAT 96
--- NOTE | 2019-03-27 13:28 | CM.DANOTE ---
Discharge Planning/Care Management DCP: assessment: case received and discussed in Team Rounds. Dr. Schoreder confirmed MRI did show + brain infarction. PT and OT were ordered. ECHO was pending. Met with pt now after talking with PT Connie. Introduced self and role. Pt is a 53 year old male who admitted yesterday to care of hospitalist team. PCP: Dr. Ibrahim Payer: ABEL (pt is employed at [employer]: works for the [employer] (department of [employer]). Pt has been cleared by PT and with no recommendation for any OUTPT PT need. Dr. Schroeder is updated and says he will be talking to pt soon with likely d/c to homoe today. Pt says My son is standing by and will pick me up once I know I am ok'd to go. I sure hope it will be today. CM Discharge Assessment Start: 03/27/19 13:21 Freq: Status: Active Protocol: Document 03/27/19 13:21 ITV (Rec: 03/27/19 13:28 ITV [id number]) Discharge Planning Assessment Advance Directives? No History Provided By Patient,Medical Record Prior Living Arrangements RV Household Members none Comment is to Gladys Castelan but . She lives elsewhere. pt's son Stephen lives in [place] Independent with ADL's Yes Is patient alert and oriented? Yes Discharge Plan Home Transportation Arrangement son will pick him up as soon as pt calls him. Pt waiting for final ok to go home. Review Status In Process
--- NOTE | 2019-03-27 13:34 | P.DS_ITS ---
History of Present Illness History of Present Illness Date Patient Seen: 03/27/19 Time Patient Seen: 11:34 Chief complaint: right side couldn't move this morning Narrative: Edilson Castelan Jr is a 53 year old male with PMH of HTN (has not been taking his medications, and has not seen his PMD in a while) who presented to the ED after waking up with right-sided paralysis and slurred speech. Patient states last night around 10:00 p.m. he had an episode lasting 5-10 minutes of right-sided paralysis and slurred speech. He further endorses some numbness on the right side that again resolved. He was aware of his surroundings and was in bed and did not fall. This resolved after approximately 5-10 minutes. The patient then went to bed and woke up around 3:00 a.m. with similar symptoms which again resolved. He then woke up early this morning with another episode that again lasted approximately 5-10 minutes. He then presented to the emergency room for further evaluation. He denies any recent fevers, chills, chest pain, palpitations, shortness of breath, dyspnea on exertion, orthopnea, lower extremity edema, nausea, vomiting. He states he drinks a 6 pack at night, every night. He smokes about a pack-a-day and has for many years. He denies illicit substances or marijuana use. In the ED, the patient's vitals were notable for hypertension, but otherwise unremarkable. His stroke scale was 0 in the emergency room. His initial lab evaluation was unremarkable. His head CT was unremarkable, as was a CTA head and neck which did not show significant carotid stenosis. He will be admitted under observation status for TIA. Discharge Providers Provider Date of admission: 03/26/19 10:15 Discharge Date: 03/27/19 Consults: 03/27/19 08:19 Consult to Physical Therapy Evaluate & Treat Comment: Physician Instructions: Evaluate and Treat 03/27/19 10:57 Consult to Occupational Therapy Evaluate & Treat Comment: Physician Instructions: Evaluate and treat Discharge provider: Maksim Schroeder DO Summary Hospital Course Discharge Diagnosis: 1. CVA, acute, present on admission, symptoms resolved 2. Essential hypertension, chronic, present on admission, active 3. HLD, present on admission Hospital Course: Mr. Flip Junior is a 53-year-old male with past medical history of hypertension who was admitted under observation status for TIA. His ABCD2 score for TIA is 4, he was given high-dose aspirin in the ED, and I will give him a Plavix loading dose of 300 mg now and he will continue 75 mg of Plavix for 90 days. He has also been started on daily aspirin. 1. CVA, acute, present on admission, symptoms resolved -patient was symptoms of unilateral right-sided paralysis and slurred speech, with reported numbness as well. CT head and CTA head and neck done in the emergency room were unremarkable. He did have 3 episodes of symptoms in total lasting around half an hour. His ABCD2 score is 4 and he will start on aspirin and Plavix. He has a current stroke score of 0, an given either high risk TIA or CVA he would benefit from 90 days of Plavix. Given no history of palpitations or AFib, this TIA is not likely embolic, but it remains a possibility. EKG does not appear ischemic and initial troponin is negative, no need for further troponins as patient is without chest pain. -patient was given high-dose aspirin, loaded with Plavix 300 mg upon arrival to the floor. Continue low-dose aspirin and 75 mg of Plavix daily. Plavix should be continued for a total of 90 days. This medication was sent to his pharmacy. -MRI did show a small, acute infarct in the left bailey radiata - Patient had evaluation by PT, OT, who recommended discharge home. -TSH unremarkable, A1c 5.2%, LDL 130 -no evidence of AFib on telemetry -TTE showed normal ejection fraction. -continued patient's prior home dose of lisinopril 20 mg, this was prescribed to give him time to follow up with primary care. -patient was started on Lipitor 40 mg nightly for secondary prevention. 2. Essential hypertension, chronic, present on admission, active -patient has not been taking his prescribed lisinopril. Will resume this medication upon discharge. May need to be titrated up depending on his clinical response in the outpatient setting 3. HLD, present on admission - patient will start on statin therapy for secondary prevention. His cholesterol is only mildly elevated. Dispo: Discharge home Status at Discharge Cognitive/behavioral status at discharge: oriented Functional status at discharge: independent ambulation Overall status at discharge: patient is back to baseline Time Spent with Patient Time spent: Greater than 30 minutes Exam Vital Signs (past 8 hours): - 03/27/19 06:18 03/27/19 08:10 03/27/19 09:00 Temperature 97.2 F L 98.2 F Pulse Rate 65 68 72 Respiratory Rate 16 18 18 Blood Pressure 135/82 150/102 H 132/90 Pulse Oximetry 97 97 97 03/27/19 12:00 Temperature 98.5 F Pulse Rate 71 Respiratory Rate 18 Blood Pressure 142/109 H Pulse Oximetry 96 Oxygen Delivery Method Room Air Oxygen Flow Rate 0 Narrative Exam Narrative: GENERAL APPEARANCE: Well developed, well nourished, in no acute distress. SKIN: Inspection of the skin reveals no rashes, ulcerations or petechiae. HEENT: The sclerae were anicteric and conjunctivae were pink and moist. Extraocular movements were intact and pupils were equal, round with normal accommodation. External inspection of the ears and nose showed no scars, lesions, or masses. Lips, teeth, and gums showed normal mucosa. The oral mucosa, hard and soft palate, tongue and posterior pharynx were unremarkable. NECK: Supple and symmetric. There was no thyroid enlargement, and no tenderness, or masses were felt. CHEST: Normal AP diameter and normal contour without any kyphoscoliosis. LUNGS: Auscultation of the lungs revealed no wheezes, rhonchi, or rales. CARDIOVASCULAR: There was a regular rate and rhythm without any murmurs, gallops, rubs. Peripheral pulses were 2+ and symmetric. ABDOMEN: Soft and nontender with normal bowel sounds. No ascites was noted. MUSCULOSKELETAL: There was no tenderness or effusions noted. Muscle strength and tone were normal. EXTREMITIES: No cyanosis, clubbing or edema. NEUROLOGIC: Alert and oriented x 3. Normal affect. Gait was normal. Strength is +5/5 in the Upper Extremities and Lower Extremities Bilaterally. Sensation to touch was normal bilaterally. Objective Labs Result Diagrams: 03/27/19 05:59 03/27/19 05:59 Labs: Laboratory Results - last 24 hr 03/27/19 03/27/19 03/27/19 05:59 05:59 05:59 WBC 9.9 RBC 4.79 Hgb 15.1 Hct 43.4 MCV 90.7 MCH 31.6 MCHC 34.9 RDW 12.9 Plt Count 288 Neut % (Auto) 72.8 Lymph % (Auto) 16.3 L [place] % (Auto) 9.2 Eos % (Auto) 1.0 L Baso % (Auto) 0.7 Neut # (Auto) 7200 H Lymph # (Auto) 1600 [place] # (Auto) 900 Eos # (Auto) 100 Baso # (Auto) 100 Sodium 137 Potassium 4.4 Chloride 104 Carbon Dioxide 26 BUN 10 Creatinine 0.90 Estimated GFR > 60.0 BUN/Creatinine Ratio 11.1 Glucose 104 H Hemoglobin A1c 5.2 Calcium 8.9 Magnesium 2.2 Triglycerides 144 Cholesterol 199 LDL Cholesterol, Calc 130 H HDL Cholesterol 40 TSH 03/27/19 05:59 WBC RBC Hgb Hct MCV MCH MCHC RDW Plt Count Neut % (Auto) Lymph % (Auto) [place] % (Auto) Eos % (Auto) Baso % (Auto) Neut # (Auto) Lymph # (Auto) [place] # (Auto) Eos # (Auto) Baso # (Auto) Sodium Potassium Chloride Carbon Dioxide BUN Creatinine Estimated GFR BUN/Creatinine Ratio Glucose Hemoglobin A1c Calcium Magnesium Triglycerides Cholesterol LDL Cholesterol, Calc HDL Cholesterol TSH 1.84 Discharge Plan Discharge Plan Patient Disposition: Home Discharge comment: You were admitted to the hospital with symptoms of a TIA including right-sided weakness, numbness, and trouble speaking. Your brain MRI showed that you had a small stroke. You were started on aspirin, a statin, and we continued your home blood pressure medication which you had not been taking. You should continue taking each of these medications every day. You will need to continue the aspirin and statin for the rest of your life. You have been prescribed a medication called Plavix, which you should take for 3 months to prevent a recurrent stroke. Please follow-up with your primary care provider for further titration of your blood pressure medication. Your cholesterol was mildly elevated (LDL 130), your thyroid function testing was also normal, and you do not have an elevated blood glucose level (A1c 5.2%). Discharge Med Rec/Prescriptions Prescriptions: New aspirin 81 mg tablet,delayed release (DR/EC) 81 mg PO DAILY 30 Days Qty: 30 RF: 0 clopidogrel 75 mg tablet 75 mg PO DAILY 90 Days Qty: 90 RF: 0 atorvastatin 40 mg tablet 40 mg PO BEDTIME 30 Days Qty: 30 RF: 0 lisinopril 20 mg tablet 20 mg PO DAILY 30 Days Qty: 30 RF: 0 Discontinued lisinopril 20 mg Tablet 20 mg PO DAILY RF: 0 Provider Discharge Instructions Diet: Diet as Tolerated Activity: As tolerated Visit Report/Discharge Packet Instructions: DI for Stroke-Ischemic, DI for Transient Ischemic Attack, How to Prevent Falls Discharges patient from system. Discharge Date/Time: 03/27/19 14:08 Quality VTE Deep Vein Thrombosis/Pulmonary Embolism Present on Admission: No
--- NOTE | 2019-03-27 13:35 | OT.IP.EVAL ---
Current Diagnoses Essential (primary) hypertension (03/26/19) Past Medical History (Last Updated 03/26/19 @ 08:23 by Huong Thurman DO) Hypertension (Acute) Occupational Therapy Inpatient Evaluation/Re-Eval M1 PT/OT-IP Prior Functional Status Start: 03/27/19 15:35 Freq: NEEDED Status: Active Protocol: Document 03/27/19 13:35 [facility] (Rec: 03/27/19 15:50 [facility] [id number]) Medical Review Prior Functional Status Medical History Reviewed Yes Diet/Fluid Consistency Regular Communication Pt is able to make needs known Mobility and Gait Pt reported that he was fully independent with all mobilty and gait. He did not use an AD prior to hospitalization. He was able to walk far distances. Activities of Daily Living and IADL's pt reports being independent with all of his ADL's Social History Household Members none Living Arrangements RV Number of Floors (Floors) One Floor Number of Stairs To Enter/Railing? There is one step to get into the RV. With a handle on the left side. Home Environment Standard Height Toilet,Tub/ Shower Employment Status [employer] Employed Additional Social History Comment Pt works on the [employer] M2 OT-IP Current Condition Start: 03/27/19 15:35 Freq: Status: Active Protocol: Document 03/27/19 13:35 [facility] (Rec: 03/27/19 15:50 [facility] [id number]) Occupational Therapy Current Condition Current Condition Evaluation Date 03/27/19 Treatment Diagnosis Small acute lacuanr infarct involving posterior left caudate body Diagnosis Onset Date 03/26/19 Weight Bearing Status Weight Bearing Status Weight Bear as Tolerated M3 OT- IP Subjective and Pain Start: 03/27/19 15:35 Freq: Status: Active Protocol: Document 03/27/19 13:35 [facility] (Rec: 03/27/19 15:50 [facility] [id number]) OT- Subjective Occupational Therapy Visit Type Type Initial Evaluation Visit Start Time 13:35 Visit Stop Time 13:44 Total Visit Minutes 9 Occupational Therapy Visit Comments Patient Comments Pt willing to do OT eval. Patient/Caregiver Goals Pt states waiting to go home. OT Pain Assessment Pain When Pain Assessed At Rest Pain Present Pain Present Denied Pain M6 OT- IP Functional Cognition Start: 03/27/19 15:35 Freq: Status: Active Protocol: Document 03/27/19 13:35 [facility] (Rec: 03/27/19 15:50 [facility] [id number]) Cognitive Factors Limiting Selfcare Function Cognitive Ability Level of Alertness Alert Patient Orientation Name,Age,Birthday,Month,Date, Year,Day of Week,Place, Situation Attention Span Ability Capable of Focused Attention, Capable of Sustained Attention Ability to Follow Commands Able to Follow Multi-Step Commands Memory Description No Deficits Noted Safety Awareness No Deficits Noted Problem Solving Ability No deficits Noted Executive Function Ability No Deficits Noted Cognitive Comments Cognitive Assessment Comments Pt scored 78 second on [place] making Part B which implies normal but not a perfect score for mental flexibility, visual attention, speed of processing, and executive thinking. Suggested if driving to have someone sit with him before back to driving. Pt states will not be driving for the next few days. OT- Vision and Hearing OT- Hearing Assessment OT- Hearing Assessment WFL OT- Vision Assessment Visual Convergence WFL Visual Flores WFL M7 OT- IP Mobility and Balance Start: 03/27/19 15:35 Freq: Status: Active Protocol: Document 03/27/19 13:35 [facility] (Rec: 03/27/19 15:50 [facility] [id number]) OT-Transfer Assessment Sit to and From Stand Sit to and from Stand Independent OT- Balance Assessment Sitting Balance and Reactions Static Sitting Balance Ability Normal Dynamic Sitting Balance Ability Normal Standing Balance and Reactions Static Standing Balance Ability Normal M8 OT- IP Objective Assessments Start: 03/27/19 15:35 Freq: Status: Active Protocol: Document 03/27/19 13:35 [facility] (Rec: 03/27/19 15:50 [facility] [email or web address]) OT Gross Range of Motion Upper Extremity Range of Motion Assessment Within Functional Limits OT Strength Upper Extremity Strength Assessment Within Functional Limits OT-Muscle Tone Assessment Muscle Tone WNL Yes OT Sensation Assessment Location Upper Upper Extremity Light Touch Intact/Normal M9 OT- IP Assessment and Plan Start: 03/27/19 15:35 Freq: Status: Active Protocol: Document 03/27/19 13:35 [facility] (Rec: 03/27/19 15:50 [facility] [id number]) OT Summary Assessment and Plan Potential Rehabilitation Potential Excellent Analytic Complexity at Evaluation Low Summary Progress Towards Goals Safe For Discharge Assessment Summary Pt going home and already has discharge orders. Intact for BUE strength, coordination, and AROM. Noted normal but not perfect for [place] Making Part B, pt states will not try to drive right away and to have someone with him initially. Goals OT-Other Goals Pt to have good understanding to not get back to driving right away and to get assist as needed. Son also lives in [place]. Days to Meet Goals 1 Frequency of Treatment Frequency Of Treatment Once a Day Treatment Plan OT Treatment Plan Patient/Family Education, Discharge Planning Discharge Recommendations OT Discharge Recommendations Home with Assistance as needed.
== END 2019-03-27 14:08 | disposition home or self-care (01) | DRG 65 ==
LOC: ED 10:14 → AC 11:18
PROVIDERS: Admitting Provider Internal Medicine; Emergency Provider Emergency Medicine; Visit Provider Internal Medicine
DX: I63.81 Other cerebral infarction due to occlusion or stenosis of small artery (principal); G81.91 Hemiplegia, unspecified affecting right dominant side; R47.81 Slurred speech; R20.1 Hypoesthesia of skin; I10 Essential (primary) hypertension; E78.5 Hyperlipidemia, unspecified; F17.210 Nicotine dependence, cigarettes, uncomplicated
CPT/HCPCS: 36415; 70450; 70496; 70498; 70548; 70553; 80048; 80053; 80061; 80305; 80320; 81003; 82962; 83036; 83735; 84443; 84484; 85025; 85610; 85730; 90471; 90656; 93005; 93010; 93306; 97161; 97165; 99284; 99285; G0378; A9579; J1650; Q2038; Q9967